=== PATIENT | male | born 1995 | race Caucasian/White ===

== ENCOUNTER 2016-09-25 08:48 | Outpatient (CLI) | payer BC ==
[2016-02-08 17:36] VITALS: BP 123/74
[2016-09-25 17:40] LABS: DIRECT BILIRUBIN 0.2 mg/dL (<0.4); TOTAL PROTEIN 6.8 g/dL (6.0-8.5)
== END 2016-09-25 08:58 ==
LOC: LAB 08:48
PROVIDERS: ATTEND Physician Assistant
DX: Z79.899 Other long term (current) drug therapy (principal); L70.0 Acne vulgaris
CPT/HCPCS: 36415; 80076; 82465; 84478